=== PATIENT | female | born 1945 | race Caucasian/White ===

== ENCOUNTER → 2022-02-07 | Outpatient (CLI) | payer MEDICARE ==
[2022-02-07 18:56] LABS: Albumin, Blood 3.5 g/dL (3.4-5.0); Albumin/Globulin Ratio 0.7 (0.8-1.8); Bilirubin, Total 0.6 mg/dL (0.1-1.0); Bun/Creatinine Ratio 23.1 (12.0-20.0); Calcium, Blood 9.7 mg/dL (8.5-10.1); Creatinine, Blood 0.91 mg/dL (0.40-1.00); Globulin, Blood 5.2 g/dL (2.2-4.0); Phosphorus, Blood 3.5 mg/dL (2.5-4.9); Potassium, Blood 4.7 mmol/L (3.5-5.5); Total Protein, Blood 8.7 g/dL (6.4-8.2)
[2022-02-09 14:11] LABS: A/G RATIO 0.7 (0.7-1.7); ALBUMIN 3.3 g/dL (2.9-4.4); ALPHA-1-GLOBULIN 0.3 g/dL (0.0-0.4); BETA GLOBULIN 1.4 g/dL (0.7-1.3); GAMMA GLOBULIN 2.2 g/dL (0.4-1.8); GLOBULIN, TOTAL 4.9 g/dL (2.2-3.9); IMMUNOGLOBULIN A, QN, SERUM 774 mg/dL (64-422); IMMUNOGLOBULIN G, QN, SERUM 2128 mg/dL (586-1602); IMMUNOGLOBULIN M, QN, SERUM 138 mg/dL (26-217); M-SPIKE 0.8 g/dL (Not Observed); PROTEIN, TOTAL, SERUM 8.2 g/dL (6.0-8.5)
== END | disposition home or self-care (01) ==
LOC: LAB SHORT 15:30
PROVIDERS: Internal Medicine Hematology & Oncology
DX: D47.2 Monoclonal gammopathy (principal)
CPT/HCPCS: 80053; 82784; 83521; 83615; 84100; 84155; 84165; 86334

== ENCOUNTER → 2023-09-02 | Outpatient (CLI) | payer MEDICARE | LOC: LAB 10:15 → LAB SHORT 10:15 | DX: N39.0 Urinary tract infection, site not specified (principal) | CPT/HCPCS: 87086 ==

== ENCOUNTER → 2025-02-04 | Outpatient (CLI) | payer MEDICARE ==
[2025-02-04 20:29] LABS: Alanine Aminotransfer (ALT/SGP 33.0 U/L (12-78); Albumin, Blood 3.3 g/dL (3.4-5.0); Albumin/Globulin Ratio 0.7 (0.8-1.8); Anion Gap 10.0 mmol/L (3-11); Aspartate Aminotrans (AST/SGOT 32.0 U/L (12-37); Bilirubin, Total 0.4 mg/dL (0.1-1.0); Blood Urea Nitrogen 19.0 mg/dL (8-24); CO2, Blood 24.0 mmol/L (21-32); Calcium, Blood 8.5 mg/dL (8.5-10.1); Chloride, Blood 104.0 mmol/L (98-108); Creatinine, Blood 0.95 mg/dL (0.40-1.00); Globulin, Blood 4.8 g/dL (2.2-4.0); Glucose, Blood 177.0 mg/dL (70-99); Phosphorus, Blood 3.3 mg/dL (2.5-4.9); Potassium, Blood 4.2 mmol/L (3.5-5.5); Sodium, Blood 134.0 mmol/L (136-145); Thyroid Stimulating Hormone 1.06 uIU/mL (0.360-4.800); Total Protein, Blood 8.1 g/dL (6.4-8.2)
[2025-02-09 12:02] LABS: ALPHA 1 GLOBULIN 0.23 g/dL (0.19-0.46); ALPHA 2 GLOBULIN 0.92 g/dL (0.48-1.05); BETA GLOBULIN 1.14 g/dL (0.48-1.10); GAMMA 2.00 g/dL (0.62-1.51); IMMUNOFIXATION IFE Done; KAPPA QNT FREE LIGHT CHAINS 42.92 mg/L (3.30-19.40); KAPPA/LAMBDA FLC RATIO 0.55 (0.26-1.65); LAMBDA QNT FREE LIGHT CHAINS 77.35 mg/L (5.71-26.30); MONOCLONAL PROTEIN 0.90 g/dL (<=0.00); TOTAL PROTEIN, SERUM 8.0 g/dL (6.3-8.2)
== END ==
LOC: LAB 16:00 → LAB SHORT 16:00
PROVIDERS: Internal Medicine Hematology & Oncology
DX: C90.02 Multiple myeloma in relapse (principal); E03.9 Hypothyroidism, unspecified
CPT/HCPCS: 80053; 82784; 83521; 84100; 84155; 84165; 84439; 84443; 86334